=== PATIENT | male | born 1990 | race Caucasian/White ===

== ENCOUNTER 2021-03-08 19:13 | Emergency (ER) | payer BC, OTHER ==
[2021-03-08 19:42] VITALS: BP 131/83; PULSE 88
[2021-03-08] MEDS ORDERED: Lidocaine 1% 30 ML SDV INJECT ONE (19:50)
[2021-03-08] MEDS ORDERED: Bacitracin Oint 1 GM U/D Packet TOP ONE (19:50)
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
== END 2021-03-08 20:35 | disposition home or self-care (01) ==
LOC: DL.ED 19:13
DX: S61.412A Laceration without foreign body of left hand, initial encounter (principal); S61.012A Laceration without foreign body of left thumb without damage to nail, initial encounter; Z72.0 Tobacco use; W01.198A Fall on same level from slipping, tripping and stumbling with subsequent striking against other object, initial encounter; W26.8XXA Contact with other sharp object(s), not elsewhere classified, initial encounter
CPT/HCPCS: 12004; 99282-25